=== PATIENT | female | born 1935 | race Caucasian/White ===

== ENCOUNTER 2019-07-31 21:53 | Inpatient (IN) | payer MEDICARE ==
[~2019-07-31] VITALS: Ht 160 cm; Wt 46.3 kg
--- NOTE | 2019-07-31 22:25 | NUR ---
GPS LOCKSTITCH FRONT MAKER NOTES: ADMITTED 83 Y/O FEMALE. PT ADMITTED FROM [facility] ER TO GPS UNIT ON A 5150. PER HOLD, PATIENT WAS OUT OF CONTROL, PUSHED & SCRATCHED HER 24 HOUR CAREGIVER FOR NO REASON AT HOME. PT. RECENTLY BEEN SUICIDAL & HER MENTAL STATE HAS BEEN UNSTABLE. PT. SEEMED VERY CONFUSED & REPEATED SAME THING OVER & OVER, HER EMOTIONS CHANGED. [facility] PLACED PATIENT ON 5150 HOLD DUE TO PT. BEING DTO/DTS. SON JASMIN ALSO BELIEVED THAT HIS MOTHER WAS DTS & NEEDED TO BE TAKEN TO THE HOSPITAL. UPON FACE TO FACE ASSESSMENT PT. IS ALERT/ORIENTED X 1-2, CONFUSED, FORGETFUL, ANXIOUS, RESTLESS, DISORGANIZED, POOR HISTORIAN DUE TO DEMENTIA/ALZHEIMER'S, EASILY AGITATED, IMPAIRED JUDGEMENT, POOR INSIGHT & IMPULSE CONTROL. DONNELL S/I AND H/I AT THIS TIME. PT UNABLE TO SIGN CONSENT FORMS DUE TO BEING CONFUSED/ANXIOUS. ENVIRONMENTAL SAFETY CHECK DONE. BED ALARM ON. BED IN LOW LOCKED POSITION. ORIENTED TO THE UNIT. CHECKED FOR BELONGING AND CONTRABAND. PT. REFUSED FULL BODY ASSESSMENT, STATED, " YOU ARE EMBARRASSING ME, WHY ARE YOU DOING THIS TO ME." RN WAS UNABLE TO ASSESS CHEST/ABDOMEN/SACRUM/BUTTOCKS & PERINEAL AREA DUE UNCOOPERATIVENESS OF THE PATIENT. WOUND CONSULT & PT ORDERED. PROVIDED PT W/ HANDBOOK AND MED GUIDE. PT. IS UNDER CARE OF PSYCHIATRIST DR. VASQUEZ & MEDICAL DR. CHINCHILLA. MED RECON DONE, VITALS ARE W/ NORMAL LEVELS. NO S/S OF RESP DISTRESS NOTED. BREATHING EVEN AND UNLABORED. WILL CONTINUE TO MONITOR Q 15 MINS. FOR SAFETY & BEHAVIOR.
[2019-07-31 22:30] VITALS: BP 139/78
[2019-07-31] MEDS ORDERED: LORAZEPAM 0.5 MG TABLET PO PRN (23:00)
[2019-07-31] MEDS ORDERED: ACETAMINOPHEN 325 MG TABLET PO PRN (23:00)
[2019-07-31] MEDS ORDERED: MAGNESIUM HYDROXIDE 30 ML UDC PO PRN (23:00)
[2019-07-31] MEDS ORDERED: MAG HYDROX/AL HYDROX/SIMETH 30 ML UDC PO PRN (23:00)
[2019-07-31] MEDS ORDERED: TEMAZEPAM 7.5 MG CAPSULE PO PRN (23:00)
[2019-07-31] MEDS ORDERED: METO25TA4 PO (23:20)
[2019-07-31] MEDS ORDERED: CLOP75TA15 PO (23:20)
[2019-07-31] MEDS ORDERED: ATOR40TA PO (23:21)
[2019-07-31] MEDS ORDERED: LISI-607 PO (23:25)
[2019-07-31] MEDS ORDERED: ASPI-605 PO (23:26)
[2019-07-31] MEDS ORDERED: BLOOD SUGAR DIAGNOSTIC 1 EACH STRIP IN ONE (23:30)
--- NOTE | 2019-08-01 03:25 | NUR ---
GPS RN NOTE PATIENT IS SLEEPING COMFORTABLY AT THIS TIME. ALL NEEDS ANTICIPATED & MET. WILL CONTINUE TO MONITOR CLOSELY FOR SAFETY & BEHAVIOR.
--- NOTE | 2019-08-01 06:01 | NUR ---
REFUSED AM LABS PATIENT REFUSED AM LABS DESPITE OF RISKS & BENEFITS EXPLANATIONS.
--- NOTE | 2019-08-01 07:00 | NUR ---
NOTIFIED FAMILY ASKED PATIENT WHO SHE WOULD LIKE THE NURSE TO CALL TO NOTIFY ABOUT HER ADMISSION AT [facility], PATIENT REQUESTED TO CALL HER SON JASMIN. CALLED PATIENT'S SON JASMIN AT [phone] & LEFT A VOICEMAIL INCLUDING GPS UNIT PHONE NUMBER.
[2019-08-01 08:00] VITALS: BP 104/76
[2019-08-01] MEDS: METOPROLOL SUCCINATE 25 MG TAB.SR.24H PO SCH (09:00)
[2019-08-01] MEDS: LISINOPRIL (5MG) 5 MG TABLET PO SCH (09:00)
[2019-08-01] MEDS: CLOPIDOGREL BISULFATE 75 MG TABLET PO SCH (09:13)
[2019-08-01] MEDS: ASPIRIN EC 81 MG TABLET.DR PO SCH (09:13)
[2019-08-01] MEDS: ENSURE ENLIVE CHOC 237 ML CAN PO SCH ×2 (10:06→17:24)
--- NOTE | 2019-08-01 12:00 | NUR ---
GPS/RN-NOTES SEEN BY DR. VASQUEZ TODAY.
[2019-08-01 16:09] VITALS: BP 142/73
[2019-08-01 18:10] LABS: BASOPHILS # (AUTO) 0.1 /CMM (0.0-0.2); BASOPHILS % (AUTO) 1.1 % (0.0-2.0); EOSINOPHILS % (AUTO) 0.3 % (0.0-6.0); HEMATOCRIT 42 % (33-45); HEMOGLOBIN 13.2 g/dL (11.5-14.8); LYMPHOCYTES # (AUTO) 1.4 /CMM (0.8-4.8); LYMPHOCYTES % (AUTO) 21.2 % (20.0-44.0); MEAN CORPUSCULAR HGB CONC 32 g/dl (31.0-36.0); MEAN CORPUSCULAR VOLUME 78 fL (82-100); MONOCYTES # (AUTO) 0.5 /CMM (0.1-1.30); MONOCYTES % (AUTO) 8.5 % (2.0-12.0); NEUTROPHILS # (AUTO) 4.5 /CMM (1.8-8.9); NEUTROPHILS % (AUTO) 68.9 % (43.0-81.0); PLATELET COUNT (AUTO) 280 /CMM (150-450); RED BLOOD CELL COUNT(AUTO) 5.35 MIL/uL (4.0-5.2); WHITE BLOOD COUNT (AUTO) 6.5 K/uL (4.3-11.0)
[2019-08-01 18:32] LABS: CALCIUM, SERUM 9.8 mg/dL (8.5-10.1); CREATININE 1.2 mg/dL (0.6-1.3); POTASSIUM 3.9 mmol/L (3.5-5.1)
--- NOTE | 2019-08-01 19:23 | NUR ---
GPS RN OPENING NOTES RECEIVED PATIENT AMBULATING IN THE HALLWAY, A & O X 1-2, CONFUSED, WANDERS INTO OTHER PATIENT'S ROOMS DUE TO FORGETFULNESS. GETS ANXIOUS, RESTLESS AT TIMES. HYPERVERBAL. EASILY IRRITABLE WHEN REDIRECTED. NEEDS FREQUENT REDIRECTIONS. AMBULATORY & STEADY. NO ACUTE DISTRESS NOTED AT THIS TIME. ENVIRONMENTAL SAFETY CHECKS DONE. BED IN LOW LOCKED POSITION. BED ALARM WILL BE ON ONCE PATIENT IS IN BED. WILL CONTINUE TO MONITOR Q15 MINS. FOR SAFETY & BEHAVIOR.
[2019-08-01 20:20] VITALS: BP 146/79
--- NOTE | 2019-08-01 20:20 | NUR ---
GPS RN NOTE, DR VASQUEZ CALLED WITH NEW TELEPHONE ORDER TO START PATIENT ON DEPAKOTE SPRINKLE 125 MG 1 CAP PO QHS TO BE STARTED AT 2200. CONSENT ALREADY SIGNED. ALL ORDERS NOTED AND CARRIED OUT WILL CONTINUE TO MONITOR THIS PATIENT.
--- NOTE | 2019-08-01 20:39 | NUR ---
GPS RN NOTE: BEHAVIORAL PATIENT IS VERY ANXIOUS, RESTLESS, PACING IN THE HALLWAY, CRYING, EMOTIONAL AT THIS TIME. PATIENT IS NON REDIRECTABLE & KEEP REPEATING SAME THING OVER & OVER. PRN ATIVAN 0.5 MG 1 TAB PO GIVEN. WILL REASSESS FOR EFFECTIVENESS.
[2019-08-01] MEDS ORDERED: DIVALPROEX SODIUM 125 MG CAP.SPRINK PO SCH (22:00)
[2019-08-01] MEDS: ATORVASTATIN 40 MG TABLET PO SCH (22:02)
--- NOTE | 2019-08-02 02:17 | NUR ---
GPS RN NOTE: INSOMNIA PATIENT WOKE UP & UNABLE TO SLEEP, AGITATED, RESTLESS, HYPERVERBAL & KEEP REPEATING THAT "IT'S HER HOUSE, WHY OTHER PEOPLE ARE HERE. PEOPLE ARE TRYING TO KILL HER." PATIENT IS PARANOID & SUSPICIOUS. OFFERED PRN RESTORIL ORDERED BUT PATIENT REFUSED MEDICINE & STARTED YELLING/SCREAMING AT STAFF, STATED," DON'T GIVE ME A PILL, I AM NOT GOING TO TAKE ANY PILL," PATIENT WAS ASSISTED TO DIPIKA CHAIR FOR SAFETY. CONTINUING TO MONITOR FOR SAFETY & BEHAVIOR.
--- NOTE | 2019-08-02 02:44 | NUR ---
GPS RN NOTE PATIENT IS UP IS DIPIKA CHAIR, GETS AGITATED/RESTLESS WHENEVER STAFF ATTEMPTS TO REDIRECT HER. BLAMING STAFF FOR STEALING HER MONEY. PATIENT IS VERY SUSPICIOUS, PARANOID, REFUSED TO TAKE ANY PRN MEDICINE AT THIS TIME. PATIENT GETS RELAXED WHEN SPACE GIVEN TO HER. TALKING TO HERSELF INTERMITTENTLY. ON 1:1 SUPERVISION AT THIS TIME. WILL CONTINUE TO MONITOR CLOSELY FOR ANY CHANGES.
--- NOTE | 2019-08-02 06:30 | NUR ---
GPS RN NOTE PATIENT IS AWAKE, AMBULATING IN HER ROOM, DOES NOT WANT TO GO TO BED. TALKING TO HER ROOMMATE INTERMITTENTLY. WILL CONTINUE TO MONITOR & WILL ENDORSE TO AM RN.
[2019-08-02 08:00] VITALS: BP 140/83
[2019-08-02] MEDS: CLOPIDOGREL BISULFATE 75 MG TABLET PO SCH (08:31)
[2019-08-02] MEDS: LISINOPRIL (5MG) 5 MG TABLET PO SCH (08:31)
[2019-08-02] MEDS: ASPIRIN EC 81 MG TABLET.DR PO SCH (08:32)
[2019-08-02] MEDS: METOPROLOL SUCCINATE 25 MG TAB.SR.24H PO SCH (08:32)
[2019-08-02] MEDS: ENSURE ENLIVE CHOC 237 ML CAN PO SCH ×2 (08:33→16:39)
--- NOTE | 2019-08-02 09:00 | NUR ---
GPS RN NOTE: PATIENT AMBULATORY STEADY GAIT, CONFUSED DISORGANIZED AT TIME , HYPERVERBAL NEEDY, COMPLIANT WITH MEDICATIONS, DENIES SI/HI, COOPERATIVE NO S/O PAIN OR DISCOMFORT NOTED. ALL NEEDS MET WILL CONTINUE MONITORING FOR SAFETY AND BEHAVIOR Q 15 MIN
[2019-08-02 16:00] VITALS: BP_SYST 109; BP_SYST 156; BP_DIAS 68; BP_DIAS 71
[2019-08-02] MEDS: DIVALPROEX SODIUM 125 MG CAP.SPRINK PO SCH (16:39)
[2019-08-02] MEDS ORDERED: QUETIAPINE FUMARATE 25 MG TABLET PO SCH (20:00)
[2019-08-02 20:22] VITALS: BP 191/79
[2019-08-02] MEDS: ATORVASTATIN 40 MG TABLET PO SCH (22:07)
--- NOTE | 2019-08-02 23:43 | NUR ---
PATIENT REFUSED BODY ASSESSMENT PATIENT REFUSED SKIN ASSESSMENT X 3, BECOMES AGITATED, RESTLESS/ANXIOUS, EMOTIONAL, CRYING, PARANOID & DESPITE OF RISKS & BENEFITS EXPLANATIONS, PATIENT CONTINUED TO REFUSE SKIN ASSESSMENT.
[2019-08-03 08:00] VITALS: BP 103/56
[2019-08-03] MEDS: DIVALPROEX SODIUM 125 MG CAP.SPRINK PO SCH ×2 (08:42→17:24)
[2019-08-03] MEDS: ASPIRIN EC 81 MG TABLET.DR PO SCH (08:42)
[2019-08-03] MEDS: METOPROLOL SUCCINATE 25 MG TAB.SR.24H PO SCH (08:43)
[2019-08-03] MEDS: LISINOPRIL (5MG) 5 MG TABLET PO SCH (08:44)
[2019-08-03] MEDS: CLOPIDOGREL BISULFATE 75 MG TABLET PO SCH (08:44)
[2019-08-03] MEDS: ENSURE ENLIVE CHOC 237 ML CAN PO SCH ×2 (08:50→17:24)
--- NOTE | 2019-08-03 12:19 | NUR ---
FAMILY CONTACT: KLAUDIA spoke with pts son Tashi [phone] who provided SW with collateral information. Per son, he states that pts aggressive behaviors and cognitive impairment began after her over a year ago. He states that pts 's caused a big impact in pts life and since then pt has been decompensating. Son states that pt has no friends or family anymore due to her constant phone calls and it becoming such a problem that people began blocking her phone calls. He states that pt calls him over 20 times a day and that when he does not answer she then calls 911. He also states that pt is paranoid and often tells him and neighbors that her caregiver wants to murder her. Son wishes for pt to be discharged [facility] a [facility]. KLAUDIA will collaborate with cielo and MD for a safe and proper discharge plan.
--- NOTE | 2019-08-03 14:04 | NUR ---
INITIAL DISCHARGE PLAN: Per pt she wishes to return home [address] [place] [address] with her caregiver Francoise. Per pts son Tashi [phone] pt is unable to return home at this moment until stable and states pt will need short term SNF placement. SW will help form a safe and proper discharge in collaboration with MD and pts son.
--- NOTE | 2019-08-03 15:49 | NUR ---
GROUP NOTE: SW encouraged pt to attend group on this present day discussing "mood-regulation." Pt refused to attend, and was irritable when SW encouraged pt to attend. Pt is not appropriate for group at this time. Pt is cognitively impaired with labile and irritable mood. Pt is displaying intrusive behavior and constantly going to the nurses station demanding things. SW will continue to encourage mood regulation and medication compliance once daily.
[2019-08-03 16:00] VITALS: BP 129/78
--- NOTE | 2019-08-03 17:30 | NUR ---
RN NOTE/MEDICATION REFUSAL-PT REFUSED 1700 DEPAKOTE. PT EDUCATED REGARDING IMPORTANCE OF MEDICATION AND PT REFUSED X3.
[2019-08-03] MEDS: QUETIAPINE FUMARATE 25 MG TABLET PO SCH (20:00)
--- NOTE | 2019-08-03 20:00 | NUR ---
GPS RN OPENING NOTES: RECEIVED PATIENT IN HER ROOM, AWAKE, NO COMPLAINS OF PAIN OR DISCOMFORT THIS TIME OF ASSESSMENT. PATIENT APPEARS UNKEMPT,CONFUSED AT TIMES. REALITY ORIENTATION DONE. PATIENT HAS THE TENDENCY TO REFUSED MEDICATIONS AND CARE BY STAFF, EXPLAINED TO PATIENT THE NEED FOR HER MEDICATIONS BUT PATIENT STILL REFUSED. OFFERED AGAIN AT SCHEDULED TIME BUT PATIENT STILL REFUSED. SAFETY AND FALL PRECAUTIONS OBSERVED. PROVIDED A SLEEP CONDUCIVE ENVIRONMENT. WILL CONTINUE TO MONITOR PATIENT.
[2019-08-03 21:11] VITALS: BP 146/64
[2019-08-03] MEDS: ATORVASTATIN 40 MG TABLET PO SCH (22:00)
--- NOTE | 2019-08-03 22:39 | NUR ---
NURSES NOTES: MEDICATION - LIPITOR MEDICATION- NON ADMINISTERED PATIENT REFUSED. PER PATIENT "I NEED TO MAKE SURE THIS MEDICINE IS COMING FROM MY DOCTOR". SALESPERSON SHOES EXPLAINED THAT THIS MEDICATION IS ORDERED BY THE DOCTOR. PATIENT STILL REFUSED TO TAKE THE MEDICATION.
[2019-08-04 08:00] VITALS: BP 137/63
[2019-08-04] MEDS: ASPIRIN EC 81 MG TABLET.DR PO SCH (08:38)
[2019-08-04] MEDS: CLOPIDOGREL BISULFATE 75 MG TABLET PO SCH (08:39)
[2019-08-04] MEDS: DIVALPROEX SODIUM 125 MG CAP.SPRINK PO SCH ×4 (08:39→16:11)
[2019-08-04] MEDS: LISINOPRIL (5MG) 5 MG TABLET PO SCH (08:39)
[2019-08-04] MEDS: ENSURE ENLIVE CHOC 237 ML CAN PO SCH ×3 (08:40→17:05)
[2019-08-04] MEDS: METOPROLOL SUCCINATE 25 MG TAB.SR.24H PO SCH (08:40)
--- NOTE | 2019-08-04 08:41 | NUR ---
RN NOTE/MEDICATION REFUSAL: PT REFUSED AM MEDICATION. EDCATED PT REGARDING IMPORTANCE OF MEDICATION COMPLIANCE. PT CONT'D TO REFUSE X3. PT INSISTS ON SEEING "HER DOCTOR". DR. CHINCHILLA AT BEDSIDE AND AWARE. WILL UPDATE PSYCHIATRIST
--- NOTE | 2019-08-04 11:17 | NUR ---
RN NOTE: DR. VASQUEZ AT BEDSIDE. INFORMED OF PT MEDICATION REFUSAL.
--- NOTE | 2019-08-04 15:16 | NUR ---
FAMILY CONTACT: KLAUDIA received a call from pts son Tashi [phone] requesting updated information. KLAUDIA informed him that pt began refusing medications yesterday 08/03/19 and that pt called 911 on this present day asking to speak to son. KLAUDIA explained that if pt continues refusing medications MD might file a medication capacity hearing to determine is medication can be administered against pts will. Son understood and stated that he will call pt and encourage medication compliance. KLAUDIA also stated that once pt is more stable she will be referred pt to [facility]. Son agreed.
[2019-08-04 16:00] VITALS: BP 142/93
[2019-08-04] MEDS: QUETIAPINE FUMARATE 25 MG TABLET PO SCH (20:00)
--- NOTE | 2019-08-04 20:55 | NUR ---
GPS RN NOTES: PT REFUSED THE 1999 SEROQUEL 25MG PO ORDERED. PT STATED, "I DONT NEED IT AND I DON'T WANT TO TAKE IT RIGHT NOW. I DON'T WANT TO BE DEPENDANT WITH MEDS." EXPLAIN RISKS AND BENEFITS. PT STILL REFUSED. CONTINUE TO MONITOR.
[2019-08-04] MEDS: ATORVASTATIN 40 MG TABLET PO SCH (21:01)
[2019-08-05 08:00] VITALS: BP 123/71
[2019-08-05] MEDS: METOPROLOL SUCCINATE 25 MG TAB.SR.24H PO SCH (08:31)
[2019-08-05] MEDS: CLOPIDOGREL BISULFATE 75 MG TABLET PO SCH (08:32)
[2019-08-05] MEDS: LISINOPRIL (5MG) 5 MG TABLET PO SCH (08:32)
[2019-08-05] MEDS: DIVALPROEX SODIUM 125 MG CAP.SPRINK PO SCH ×3 (08:32→17:14)
[2019-08-05] MEDS: ASPIRIN EC 81 MG TABLET.DR PO SCH (08:32)
[2019-08-05] MEDS: ENSURE ENLIVE CHOC 237 ML CAN PO SCH ×3 (08:35→17:14)
--- NOTE | 2019-08-05 14:41 | NUR ---
Group Note: SW invited the patient to attend group therapy on 08/05/2019 1 pm to discuss "what changes they would like to see in their lives as a result of their stay in GPS". SW assessed the patient's ability to participate in therapy. The pt. has irritable mood and is mistrusting asking to see KLAUDIA cunningham. The pt. refused to go to therapy and stated, "I don't want to go, please don't bother me".
[2019-08-05 16:00] VITALS: BP 115/81
[2019-08-05] MEDS: QUETIAPINE FUMARATE 25 MG TABLET PO SCH (20:31)
[2019-08-05 21:02] VITALS: BP 121/60
[2019-08-05] MEDS: ATORVASTATIN 40 MG TABLET PO SCH (21:07)
[2019-08-06 08:00] VITALS: BP 120/69
[2019-08-06] MEDS: METOPROLOL SUCCINATE 25 MG TAB.SR.24H PO SCH (08:27)
[2019-08-06] MEDS: CLOPIDOGREL BISULFATE 75 MG TABLET PO SCH (08:27)
[2019-08-06] MEDS: LISINOPRIL (5MG) 5 MG TABLET PO SCH (08:28)
[2019-08-06] MEDS: DIVALPROEX SODIUM 125 MG CAP.SPRINK PO SCH ×5 (08:28→21:09)
[2019-08-06] MEDS: ENSURE ENLIVE CHOC 237 ML CAN PO SCH ×3 (08:29→17:49)
[2019-08-06] MEDS: ASPIRIN EC 81 MG TABLET.DR PO SCH (08:29)
--- NOTE | 2019-08-06 09:20 | NUR ---
FAMILY CONTACT: KLAUDIA spoke with pts son Tashi [phone] to inform him pt is having a PROBABLE CAUSE HEARING on this present day. Son states that he wishes for pt to remain on a 14 day hold until she is stable. SW also informed him that pt has been compliant with medication and that SW will be faxing SNF referrals. Son requested pt be referred pt a SNF closer to [facility] and SW suggested [facility] and son agreed.
--- NOTE | 2019-08-06 09:33 | NUR ---
SNF REFERRAL: KLAUDIA faxed SNF referral to [facility] Address: [address], [place] [address] for review.
--- NOTE | 2019-08-06 11:38 | NUR ---
FAMILY CONTACT: KLAUDIA spoke with pts son Tashi [phone] to inform him pts PC HEARING has been upheld. Son agreed with PC HEARING outcome.
[2019-08-06 16:00] VITALS: BP 152/69
--- NOTE | 2019-08-06 17:40 | NUR ---
New order of Depakote 125 mg sprinkle not given, med was given already at 1641.
[2019-08-06] MEDS: QUETIAPINE FUMARATE 25 MG TABLET PO SCH (20:10)
[2019-08-06 20:30] VITALS: BP 110/65
[2019-08-06] MEDS: ATORVASTATIN 40 MG TABLET PO SCH (21:09)
[2019-08-07 08:00] VITALS: BP 126/68
[2019-08-07] MEDS: ENSURE ENLIVE CHOC 237 ML CAN PO SCH ×3 (08:09→16:43)
[2019-08-07] MEDS: METOPROLOL SUCCINATE 25 MG TAB.SR.24H PO SCH (08:23)
[2019-08-07] MEDS: DIVALPROEX SODIUM 125 MG CAP.SPRINK PO SCH ×4 (08:23→21:24)
[2019-08-07] MEDS: CLOPIDOGREL BISULFATE 75 MG TABLET PO SCH (08:23)
[2019-08-07] MEDS: ASPIRIN EC 81 MG TABLET.DR PO SCH (08:23)
[2019-08-07] MEDS: LISINOPRIL (5MG) 5 MG TABLET PO SCH (08:25)
--- NOTE | 2019-08-07 08:27 | NUR ---
SNF REFERRAL: KLAUDIA faxed SNF referral to [facility] Address: [address] [facility], [place] [address] for review.
--- NOTE | 2019-08-07 09:12 | NUR ---
SNF REFERRAL: KLAUDIA faxed SNF referral to [place] borough coordinator at [facility] Address: [address] [facility] [address], [place] [address] for review.
--- NOTE | 2019-08-07 11:04 | NUR ---
SNF REFERRAL: SW received a call from Shayy admission coordinator at [facility] Address: [place] [address] stating pt has been accepted to the facility.
--- NOTE | 2019-08-07 11:04 | NUR ---
SNF REFERRAL: SW received a call from [place] marketing proposal coordinator at [facility] Address: [address] [place] [address] statin pt has been accepted to the facility.
--- NOTE | 2019-08-07 11:05 | NUR ---
FAMILY CONTACT: KLAUDIA received a call from pts son Tashi [phone] requesting updated information. SW informed him pt has been accepted to [facility] and [facility]. Son stated he will visit both and inform KLAUDIA which one he wishes for pt to be discharged to.
--- NOTE | 2019-08-07 15:29 | NUR ---
GROUP THERAPY: Pt was present in group discussing "suicidal ideation." Pt refused saying she did not want to leave her room because she was waiting for her stamp machine servicer that is her son to call her and she did not want to miss his call. Pt has cognitive impairment and unable to process information. SW will continue to assess pts ability pt participate in group milieu.
[2019-08-07 16:00] VITALS: BP 148/71
--- NOTE | 2019-08-07 19:38 | NUR ---
GPS RN OPENING NOTES: PATIENT RESTING IN HER BED, EASILY AGITED ,FORGETFUL CONFUSED DISHELVED ,PARANOID DENIES SI/HI/AVH AT THIS TIME,ENCOURAGED FOR VERBALIZATION OF FEELINGS, SAFETY PRECAUTIONS IMPLEMENTED. INTERACT WITH ENGAGED, NEEDS FREQUENTLY REDIRECTIONS ,WILL CONTINUE TO MONITOR Q15MIN ROUNDS FOR SAFETY AND BEHAVIOR.
[2019-08-07] MEDS: QUETIAPINE FUMARATE 25 MG TABLET PO SCH (20:27)
[2019-08-07 20:40] VITALS: BP 129/62
[2019-08-07] MEDS: ATORVASTATIN 40 MG TABLET PO SCH (21:24)
--- NOTE | 2019-08-08 06:47 | NUR ---
GPS RN CLOSING NOTE: PATIENT IN BED ASLEEP,COMFORTABLY, NO ACUTE DISTRESS NOTED. DENIES PAIN OR DISCOMFORT. NO AGITATION NOTED. NO BEHAVIOR PROBLEMS NOTED ,DENIES SI/HI/AVH AT THIS TIME. SAFETY PRECAUTIONS IMPLEMENTED.ALL NEEDS ATTENDED AND ANTICIPATED, ENCOURGED FOR VERBALIZED ANY FEELING ,BED ALARM ON AND IN LOCKED POSITION. WILL CONTINUE TO MONITOR FOR PT'S SAFETY.
[2019-08-08 08:00] VITALS: BP 136/80
[2019-08-08] MEDS: CLOPIDOGREL BISULFATE 75 MG TABLET PO SCH (08:22)
[2019-08-08] MEDS: ASPIRIN EC 81 MG TABLET.DR PO SCH (08:22)
[2019-08-08] MEDS: METOPROLOL SUCCINATE 25 MG TAB.SR.24H PO SCH (08:22)
[2019-08-08] MEDS: DIVALPROEX SODIUM 125 MG CAP.SPRINK PO SCH ×4 (08:22→20:40)
[2019-08-08] MEDS: ENSURE ENLIVE CHOC 237 ML CAN PO SCH ×3 (08:22→17:31)
[2019-08-08] MEDS: LISINOPRIL (5MG) 5 MG TABLET PO SCH (08:22)
--- NOTE | 2019-08-08 09:50 | NUR ---
GPS RN OPENING NOTE: RECEIVED PT LYING IN BED. NO ACUTE DISTRESS NOTED. PPT IS AOX2 AND ABLE TO MAKE NEEDS KNOWN. PT IS COMPLIANT WITH MEDICATION ADMINISTRATION AND PLAN OF CARE. PATIENT NEEDS ENCOURAGEMENT TO TAKE MEDICATIONS. PATIENT IS ANXIOUS, DEPRESSED ABOUT HER HUSBANDS PASSING, AND INTERMITTENTLY TEARFUL. EMOTIONAL. PT DENIES SI/HI/AH/VH AT PRESENT TIME. PT WITH POOR SHORT TERM MEMORY. WILL CONT TO MONITOR PT Q15 FOR MOOD, SAFETY AND BEHAVIOR.
[2019-08-08 16:00] VITALS: BP 130/68
[2019-08-08] MEDS: QUETIAPINE FUMARATE 25 MG TABLET PO SCH (20:40)
[2019-08-08 21:13] VITALS: BP 127/52
[2019-08-08] MEDS: ATORVASTATIN 40 MG TABLET PO SCH (21:14)
[2019-08-09 08:00] VITALS: BP 125/65
[2019-08-09] MEDS: CLOPIDOGREL BISULFATE 75 MG TABLET PO SCH (08:16)
[2019-08-09] MEDS: ASPIRIN EC 81 MG TABLET.DR PO SCH (08:16)
[2019-08-09] MEDS: DIVALPROEX SODIUM 125 MG CAP.SPRINK PO SCH ×4 (08:16→20:04)
[2019-08-09] MEDS: METOPROLOL SUCCINATE 25 MG TAB.SR.24H PO SCH (08:17)
[2019-08-09] MEDS: LISINOPRIL (5MG) 5 MG TABLET PO SCH (08:19)
[2019-08-09] MEDS: ENSURE ENLIVE CHOC 237 ML CAN PO SCH ×3 (08:20→16:13)
--- NOTE | 2019-08-09 11:26 | NUR ---
RN NOTE - RECEIVED PT LYING IN BED. NO ACUTE DISTRESS NOTED. VSS, AFEBRILE. PT ABLE TO MAKE NEEDS KNOWN. POOR SHORT TERM MEMORY. PT IS COMPLIANT WITAH MEDICATGION ADMINISTRATION AND PLAN OF CARE. PT DEPRESSED AND TEARFUL AT TIMES. PT DENIES SI/HI/AH/VH AT PRESENT TIME. WILL CONT TO MONITO RPT PER GPS PROTOCOL
[2019-08-09 16:14] VITALS: BP 121/83
[2019-08-09] MEDS: QUETIAPINE FUMARATE 25 MG TABLET PO SCH (20:04)
[2019-08-09 20:14] VITALS: BP 129/45
[2019-08-09] MEDS: ATORVASTATIN 40 MG TABLET PO SCH (21:03)
--- NOTE | 2019-08-09 22:03 | NUR ---
GPS RN NOTES: RI REFUSED WEEKLY PICTURE PT REFUSED SKIN ASSESSMENT PICTURES. PT STATED, "NO! I DONT WANT ANY PICTURES NOW." PT INCREASED AGITATION. EXPLAIN RISKS AND BENEFITS. STILL REFUSED X3 CONTINUE TO MONITOR.
[2019-08-10 08:00] VITALS: BP 153/74
[2019-08-10] MEDS: DIVALPROEX SODIUM 125 MG CAP.SPRINK PO SCH ×4 (08:17→21:05)
[2019-08-10] MEDS: LISINOPRIL (5MG) 5 MG TABLET PO SCH (08:17)
[2019-08-10] MEDS: METOPROLOL SUCCINATE 25 MG TAB.SR.24H PO SCH (08:17)
[2019-08-10] MEDS: ENSURE ENLIVE CHOC 237 ML CAN PO SCH ×3 (08:17→17:00)
[2019-08-10] MEDS: CLOPIDOGREL BISULFATE 75 MG TABLET PO SCH (08:17)
[2019-08-10] MEDS: ASPIRIN EC 81 MG TABLET.DR PO SCH (08:17)
--- NOTE | 2019-08-10 09:35 | NUR ---
GPS RN OPENING NOTE: RECEIVED PT LYING IN BED. NO ACUTE DISTRESS NOTED. PT IS AOX2 AND ABLE TO MAKE NEEDS KNOWN. PT IS COMPLIANT WITH MEDICATION ADMINISTRATION AND PLAN OF CARE. PT IS EMOTIONAL, FEARFUL AND INTERMITTENTLY CRIES. PT STATES THAT SHE IS FEELING BETTER AND IS LESS DEPRESSED. PT DENIES SI/HI/AH/VH AT PRESENT TIME. PT WITH POOR SHORT TERM MEMORY. WILL CONT TO MONITOR PT Q15 FOR MOOD, SAFETY AND BEHAVIOR.
--- NOTE | 2019-08-10 12:25 | NUR ---
FAMILY CONTACT: KLAUDIA spoke with pts son Tashi [phone] to inform him pt will be discharged on Saturday08/12/19, son agrees with discharge date and states he wishes for pt to be discharged to [facility]. KLAUDIA informed him that she will be arranging pts transportation and he agreed.
[2019-08-10 16:00] VITALS: BP 107/53
--- NOTE | 2019-08-10 20:19 | NUR ---
OPENING NOTES : PATIENT RESTING IN HER BED . NO S/S OF ANY DISTRESS NOTED. BREATHING EVEN AND UNLABORED. NO S/S OF SOB. PT IS CONFUSED, FORGETFUL, RESERVED, PARANOID , DISHELVED ,GUARDED, & EASILY AGITATED, DISORGANIZED. PT. WANDERS TO ANOTHER ROOMS REQUIRES FREQUENT REDIRECTION, DENIES SI/HI AT THIS TIME. POSITION. WILL CONTINUE TO MONITOR Q15 MINS FOR SAFETY AND BEHAVIOR. CONTINUE TO MONITOR.
[2019-08-10] MEDS: QUETIAPINE FUMARATE 25 MG TABLET PO SCH (20:51)
[2019-08-10 20:56] VITALS: BP 154/81
[2019-08-10] MEDS: ATORVASTATIN 40 MG TABLET PO SCH (21:06)
--- NOTE | 2019-08-11 06:17 | NUR ---
GPS RN CLOSING NOTE: PATIENT RESTING IN BED ASLEEP,COMFORTABLY, NO ACUTE DISTRESS NOTED. DENIES PAIN OR DISCOMFORT. NO AGITATION NOTED. NO BEHAVIOR PROBLEMS NOTED ,DENIES SI/HI/AVH AT THIS TIME. SAFETY PRECAUTIONS IMPLEMENTED.ALL NEEDS ATTENDED AND ANTICIPATED, ENCOURGED FOR VERBALIZED ANY FEELING ,BED ALARM ON AND IN LOCKED POSITION. WILL CONTINUE TO MONITOR FOR PT'S SAFETY.
[2019-08-11 07:41] LABS: BASOPHILS # (AUTO) 0.1 /CMM (0.0-0.2); BASOPHILS % (AUTO) 1.1 % (0.0-2.0); EOSINOPHILS % (AUTO) 1.9 % (0.0-6.0); HEMATOCRIT 37 % (33-45); HEMOGLOBIN 11.8 g/dL (11.5-14.8); LYMPHOCYTES # (AUTO) 1.8 /CMM (0.8-4.8); LYMPHOCYTES % (AUTO) 25.4 % (20.0-44.0); MEAN CORPUSCULAR HGB CONC 32 g/dl (31.0-36.0); MEAN CORPUSCULAR VOLUME 77 fL (82-100); MONOCYTES # (AUTO) 0.6 /CMM (0.1-1.30); MONOCYTES % (AUTO) 8.4 % (2.0-12.0); NEUTROPHILS # (AUTO) 4.5 /CMM (1.8-8.9); NEUTROPHILS % (AUTO) 63.2 % (43.0-81.0); PLATELET COUNT (AUTO) 213 /CMM (150-450); RED BLOOD CELL COUNT(AUTO) 4.81 MIL/uL (4.0-5.2); WHITE BLOOD COUNT (AUTO) 7.2 K/uL (4.3-11.0)
[2019-08-11 08:00] VITALS: BP 148/75
[2019-08-11 08:04] LABS: BILIRUBIN,TOTAL 0.5 mg/dL (0.2-1.0); CALCIUM, SERUM 8.9 mg/dL (8.5-10.1); CREATININE 0.9 mg/dL (0.6-1.3); POTASSIUM 4.1 mmol/L (3.5-5.1); TOTAL PROTEIN, SERUM 6.7 g/dL (6.4-8.2)
[2019-08-11] MEDS: DIVALPROEX SODIUM 125 MG CAP.SPRINK PO SCH ×4 (08:26→21:09)
[2019-08-11] MEDS: CLOPIDOGREL BISULFATE 75 MG TABLET PO SCH (08:27)
[2019-08-11] MEDS: LISINOPRIL (5MG) 5 MG TABLET PO SCH (08:27)
[2019-08-11] MEDS: METOPROLOL SUCCINATE 25 MG TAB.SR.24H PO SCH (08:27)
[2019-08-11] MEDS: ASPIRIN EC 81 MG TABLET.DR PO SCH (08:27)
[2019-08-11] MEDS: ENSURE ENLIVE CHOC 237 ML CAN PO SCH ×3 (08:27→17:35)
--- NOTE | 2019-08-11 09:46 | NUR ---
GPS RN OPENING NOTE: RECEIVED PT LYING IN BED. NO ACUTE DISTRESS NOTED. PT IS AOX2 AND ABLE TO MAKE NEEDS KNOWN. PT IS COMPLIANT WITH MEDICATION ADMINISTRATION AND PLAN OF CARE. PT IS EMOTIONAL, FEARFUL AND INTERMITTENTLY CRIES. PT IS NERVOUS ABOUT D/C PLANNING. PT DENIES SI/HI/AH/VH AT PRESENT TIME. PT WITH POOR SHORT TERM MEMORY. WILL CONT TO MONITOR PT Q15 FOR MOOD, SAFETY AND BEHAVIOR.
[2019-08-11 16:00] VITALS: BP 115/57
--- NOTE | 2019-08-11 19:47 | NUR ---
GPS RN OPENING NOTES: PATIENT WALKING AROUND THE UNIT WITH FAMILY MEMBER, EASILY AGITED ,FORGETFUL CONFUSED DISHELVED ,PARANOID DENIES SI/HI/AVH AT THIS TIME,ENCOURAGED FOR VERBALIZATION OF FEELINGS, SAFETY PRECAUTIONS IMPLEMENTED. INTERACT WITH ENGAGED, NEEDS FREQUENTLY REDIRECTIONS ,WILL CONTINUE TO MONITOR Q15MIN ROUNDS FOR SAFETY AND BEHAVIOR.
[2019-08-11 20:18] VITALS: BP 134/66
[2019-08-11] MEDS: QUETIAPINE FUMARATE 25 MG TABLET PO SCH (20:25)
[2019-08-11] MEDS: ATORVASTATIN 40 MG TABLET PO SCH (21:09)
--- NOTE | 2019-08-12 06:47 | NUR ---
RN GPS NOTES: PT. REFUSED AM LABS , ENCOURAGED RISKS AND BENFITS EXPLINED , STILL REFUSED.
--- NOTE | 2019-08-12 06:51 | NUR ---
GPS RN CLOSING NOTE: PATIENT RESTING IN BED ASLEEP AT THIS TIME AND EASILY AGITAED , PARANOID FORGETFUL , NEEDS FREQUENTLY REDIRECTIONS, NO ACUTE DISTRESS NOTED. DENIES PAIN OR DISCOMFORT ,DENIES SI/HI/AVH AT THIS TIME. SAFETY PRECAUTIONS IMPLEMENTED.ALL NEEDS ATTENDED AND ANTICIPATED, ENCOURGED FOR VERBALIZED ANY FEELING ,WILL CONTINUE TO MONITOR FOR PT'S SAFETY AND BEHAVIOUR .
[2019-08-12 08:00] VITALS: BP 106/56
[2019-08-12 09:00] VITALS: BP 106/56
[2019-08-12] MEDS: METOPROLOL SUCCINATE 25 MG TAB.SR.24H PO SCH (09:00)
[2019-08-12] MEDS: LISINOPRIL (5MG) 5 MG TABLET PO SCH (09:00)
[2019-08-12] MEDS: DIVALPROEX SODIUM 125 MG CAP.SPRINK PO SCH ×2 (09:03→13:00)
[2019-08-12] MEDS: ASPIRIN EC 81 MG TABLET.DR PO SCH (09:03)
[2019-08-12] MEDS: CLOPIDOGREL BISULFATE 75 MG TABLET PO SCH (09:03)
--- NOTE | 2019-08-12 09:05 | NUR ---
DR. VASQUEZ GAVE AN ORDER TO D/C HOLD AND D/C TO [facility], TO CONTINUE SAME MEDS INCLUDING PRN AND TO FOLLOW UP WITH PSYCH AND MEDICAL DOCTORS.
[2019-08-12] MEDS: ENSURE ENLIVE CHOC 237 ML CAN PO SCH ×2 (09:16→13:03)
--- NOTE | 2019-08-12 10:49 | NUR ---
DISCHARGE NOTE: Pt will be discharged at 1:00pm via AM [facility] ([facility]) [address] [place] [address] P: [phone]. Pts son Tashi [phone] has been notified and agrees with discharge plan. Pts mood is euthymic with Congruent affect. Pt denied suicidal/homicidal ideation and denied visual/auditory hallucinations. Pt will be under the care of Psychiatrist: Dr. Olga Maurer [address] [place] [address] [address], [place] [address] and Certified Drug Counselor: Dr Quiles Address: [address] [place] [address] [address], [place] [address] [phone]. The multidisciplinary exit care form was done, printed, signed, and given to the patient.
--- NOTE | 2019-08-12 14:18 | NUR ---
Pt. left the unit via ambulance and transported via a gurney with belongings. Left without distress and on stable condition. V/S taken: BP 148/67, RI 90, RR 18 and oxygen sat 98%.
--- NOTE | 2019-08-12 14:20 | NUR ---
GPS SYSTEM VALIDATION ENGINEER NOTED: PATIENT IS A 83 Y/O FEMALE DISCHARGED TO. [facility].PATIENT IS IN STABLE CONDITION. VSS. NO ACUTE DISTRESS NOTED. NO COMPLAINTS. COMPLIANT WITH MEDICATION MANAGEMENT. COOPERATIVE WITH PLAN OF CARE. PSYCHIATRIC TREATMENT PLANS MET. MEDICAL TREATMENT PLANS DEFERRED FOR CONTINUAL MONITORING. DENIES SI/HI VAH AT THE TIME OF DISCHARGE. PT REFUSED SKIN ASSESSMENT . EDUCATED PATIENT ABOUT AFTERCARE WITH COPY PROVIDED. RETURNED PERSONAL BELONGINGS TO PATIENT. MEDICATIONS RECONCILED WITH ALONG WITH PSYCHIATRIC DISCHARGE ORDERS. DISCHARGE PAPERWORK SIGNED. FOR FOLLOW UP WITH PSYCHIATRIST AND RING FACER WITHIN 1 WEEK. PATIENT LEFT [facility] VIA.AMBULANCE.REPORT GIVEN TO RN IN SNF.
== END 2019-08-12 14:18 | DRG 885 ==
LOC: GPS 21:53
PROVIDERS: ADMIT Psychiatry & Neurology Psychosomatic Medicine; ATTEND Internal Medicine
DX: F25.0 Schizoaffective disorder, bipolar type (principal); F02.80 Dementia in other diseases classified elsewhere, unspecified severity, without behavioral disturbance, psychotic disturbance, mood disturbance, and anxiety; F29 Unspecified psychosis not due to a substance or known physiological condition; G30.9 Alzheimer's disease, unspecified; E78.5 Hyperlipidemia, unspecified; I10 Essential (primary) hypertension; F41.9 Anxiety disorder, unspecified; B35.1 Tinea unguium; E86.0 Dehydration; Z73.6 Limitation of activities due to disability; F39 Unspecified mood [affective] disorder
CPT/HCPCS: 36415; 80048-TC; 80053-TC; 80061-TC; 80164-TC; 82962-TC; 85025-TC; 87081-TC; 97116-TC; 97530-TC